=== PATIENT | female | born 1980 | race African-American/Black ===

== ENCOUNTER 2023-05-28 04:05 | Emergency (ER) | payer OTHER ==
[~2023-05-28] VITALS: Ht 177.8 cm; Wt 163.3 kg
[2023-05-28 04:17] VITALS: O2SAT 100
[2023-05-28] MEDS ORDERED: EYE IRRIGATION (OPTH) 120 ML BTL ONE (04:22)
[2023-05-28] MEDS ORDERED: FLUORESCEIN SOD(OPTH) 1 MG STRP ONE (04:22)
[2023-05-28] MEDS ORDERED: TETRACAINE HCL 0.5% OPTH SOLN 4 ML BTL ONE (04:22)
== END 2023-05-28 04:30 | disposition home or self-care (01) ==
LOC: ER 04:12
DX: T15.91XA Foreign body on external eye, part unspecified, right eye, initial encounter (principal)
CPT/HCPCS: 99283